=== PATIENT | male | born 1950 | race Caucasian/White ===

== ENCOUNTER 2019-03-06 02:07 | Emergency (ER) | payer MEDICARE, MEDICAID ==
[~2019-03-06] VITALS: Ht 167.6 cm; Wt 64.0 kg
[2019-03-06] MEDS ORDERED: MORPHINE SULFATE 4 MG/ML CPJ (NOT FOR IM USE) IV ONE (03:00)
[2019-03-06] MEDS ORDERED: KETAMINE HCL 50 MG/ML 10ML IV ONE (04:00)
[2019-03-06] MEDS ORDERED: PROPOFOL 200MG/20ML VIAL IV ONE (04:00)
[2019-03-06] MEDS ORDERED: HYDROCODONE/ACETAMINOPHEN 10/325MG TABLET PO ONE (04:45)
[2019-03-06] MEDS ORDERED: CLONIDINE 0.3MG TABLET PO ONE (05:15)
[2019-03-06 07:17] VITALS: BP 161/89
== END 2019-03-06 07:18 | disposition home or self-care (01) ==
LOC: ER 02:07
DX: S43.004A Unspecified dislocation of right shoulder joint, initial encounter (principal); R03.0 Elevated blood-pressure reading, without diagnosis of hypertension; W18.30XA Fall on same level, unspecified, initial encounter; Y93.9 Activity, unspecified; Y92.9 Unspecified place or not applicable
CPT/HCPCS: 23650; 73030; 96374; 99152; 99285; J2270; J2704; J3490; L3670